=== PATIENT | female | born 1985 | race Caucasian/White ===

== ENCOUNTER 2021-04-12 14:45 | Inpatient (IN) | payer BC ==
[2021-04-12] MEDS ORDERED: Ondansetron 4 MG/2 ML SDV IVPUSH PRN (16:52)
[2021-04-12] MEDS ORDERED: Nalbuphine 10 MG/1 ML Vial IVPUSH PRN (16:52)
[2021-04-12] MEDS ORDERED: Acetaminophen 325 MG Tab PO PRN (16:52)
--- NOTE | 2021-04-12 16:55 | PCM.LDHP ---
L&D History of Present Illness - General Date of Service: 04/12/21 Admit Problem/Dx: Patient Status Order with Admit Dx/Problem 04/12/21 14:58 Patient Status [ADT] Routine Admission Diagnosis/Problem Admission Diagnosis/Problem Source of Information: Patient History Limitations: Reports: No Limitations - History of Present Illness Introduction:: Patient is a 35 y/o at 37 5/7 wks who presents for concerns of contractions. Started in early AM hours. Progressing slightly. No LOF - Related Data Allergies/Adverse Reactions: Allergies Allergy/AdvReac Type Severity Reaction Status Date / Time cephalexin Allergy Hives Verified 04/12/21 15:54 doxycycline Allergy Hives Verified 04/12/21 15:55 levofloxacin Allergy Hives Verified 04/12/21 15:55 Penicillins Allergy Hives Verified 04/12/21 15:52 shellfish derived Allergy Shortness Verified 04/12/21 15:55 of Breath Home Medications: Home Meds Aspirin [Ecotrin EC] 81 mg PO DAILY 04/12/21 [History] Cholecalciferol (Vitamin D3) [Vitamin D3] 25 mcg PO DAILY 04/12/21 [History] Ferrous Sulfate 325 mg PO DAILY 04/12/21 [History] Loratadine [Claritin] 10 mg PO DAILY 04/12/21 [History] Omeprazole Magnesium [Prilosec Otc] 20 mg PO BID 04/12/21 [History] Pnv No.95/Ferrous Fum/Folic AC [ Caplet] 1 each PO DAILY 04/12/21 [History] 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 Medical History 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 Para: 1 (Daughter passed SIDS) Psychiatric History: Reports: Anxiety - Past Surgical History HEENT Surgical History: Reports: Oral Surgery (wisdom tooth extraction) Social & Family History - Tobacco Use Tobacco Use Status *Q: Never Tobacco User - Alcohol Use Alcohol Use History: No - Recreational Drug Use Recreational Drug Use: No H&P Review of Systems - Review of Systems: Review Of Systems: See Below General: Reports: No Symptoms Pulmonary: Reports: No Symptoms Cardiovascular: Reports: No Symptoms Gastrointestinal: Reports: No Symptoms Genitourinary: Reports: No Symptoms Musculoskeletal: Reports: No Symptoms Psychiatric: Reports: No Symptoms L&D Exam - Exam Exam: See Below - Vital Signs Vital Signs: Last Vital Signs Temp 36.9 C 04/12/21 14:58 Pulse 79 04/12/21 14:58 Resp 14 04/12/21 14:58 BP 146/80 H 04/12/21 14:58 Pulse Ox 97 04/12/21 14:58 Weight: 115.212 kg - OB Specific Contraction Intensity: Mild to Moderate Movement: Active Heart Tones: Present Heart Tones per Min: 145 Heart Rate (FHR) Variability: Moderate (6-25 bpm) Presentation: Vertex - Moreno Score Moreno Score Cervix Position: Anterior Moreno Score Consistency: Soft Moreno Score Effacement: 51-70% Moreno Score Dilation: 3-4 cm Moreno Score Infant's Station: -2 Moreno Score Total: 9 - Exam General: Alert, Oriented, Cooperative Lungs: Clear to Auscultation, Normal Respiratory Effort Cardiovascular: Regular Rate, Regular Rhythm GI/Abdominal Exam: Soft, Non-Tender Genitourinary: Normal external exam Extremities: Pedal Edema - Patient Data Lab Results Last 24 hrs: Laboratory Results - last 24 hr 04/12/21 Range/Units 16:10 WBC 13.32 H (3.98-10.04) K/mm3 RBC 4.20 (3.98-5.22) M/mm3 Hgb 12.0 (11.2-15.7) gm/dl Hct 36.9 (34.1-44.9) % MCV 87.9 (79.4-94.8) fl MCH 28.6 (25.6-32.2) pg MCHC 32.5 (32.2-35.5) g/dl RDW Std Deviation 56.4 H (36.4-46.3) fL Plt Count 257 (182-369) K/mm3 MPV 10.5 (9.4-12.3) fl Neut % (Auto) 81.4 H (34.0-71.1) % Lymph % (Auto) 12.7 L (19.3-51.7) % [place] % (Auto) 5.0 (4.7-12.5) % Eos % (Auto) 0.2 L (0.7-5.8) Baso % (Auto) 0.1 (0.1-1.2) % Neut # (Auto) 10.84 H (1.56-6.13) K/mm3 Lymph # (Auto) 1.69 (1.18-3.74) K/mm3 [place] # (Auto) 0.67 H (0.24-0.36) K/mm3 Eos # (Auto) 0.03 L (0.04-0.36) K/mm3 Baso # (Auto) 0.01 (0.01-0.08) K/mm3 Result Diagrams: 04/12/21 16:10 04/12/21 16:10 - Problem List (1) 37 weeks gestation of SNOMED Code(s): 48680531 ICD Code: Z3A.37 - 37 WEEKS GESTATION OF Status: Acute Current Visit: Yes (2) Gestational hypertension SNOMED Code(s): 51021113 ICD Code: O13.9 - GESTATIONAL HTN W/O SIGNIFICANT PROTEINURIA, UNSP TRIMESTER Status: Acute Current Visit: Yes Qualifiers: Trimester: third trimester Qualified Code(s): O13.3 - Gestational [-induced] hypertension without significant proteinuria, third trimester Problem List Initiated/Reviewed/Updated: Yes Orders Last 24hrs: Active Orders 24 hr Category Date Time Status Patient Status [ADT] Routine ADT 04/12/21 14:58 Active Communication Order [RC] ASDIRECTED Care 04/12/21 16:53 Ordered Heart Tones [RC] ASDIRECTED Care 04/12/21 16:53 Ordered Non Stress Test [RC] PER UNIT ROUTINE Care 04/12/21 14:58 Active Notify Provider [RC] PRN Care 04/12/21 16:53 Ordered Peripheral IV Care [RC] . DIRECTED Care 04/12/21 16:53 Ordered Up ad Susana [RC] ASDIRECTED Care 04/12/21 14:59 Active Vital Signs [RC] PER UNIT ROUTINE Care 04/12/21 14:58 Active Regular Diet [DIET] Diet 04/12/21 Breakfast Active Regular Diet [DIET] Diet 04/12/21 Dinner Ordered ALANINE AMINOTRANSFERASE,ALT [CHEM] Stat Lab 04/12/21 16:10 Received ASPARTATE AMNIOTRANSFERASE,AST [CHEM] Stat Lab 04/12/21 16:10 Received BLOOD UREA NITROGEN,BUN [CHEM] Stat Lab 04/12/21 16:10 Received CREATININE W/GFR [CHEM] Stat Lab 04/12/21 16:10 Received LACTATE DEHYDROGENASE,LDH [CHEM] Stat Lab 04/12/21 16:10 Received PROTEIN/CREATININE RATIO,URINE [URCHEM] Routine Lab 04/12/21 15:56 Received RAPID PLASMA REAGIN,RPR [CHEM] Routine Lab 04/12/21 16:53 Ordered TYPE AND SCREEN [BBK] Routine Lab 04/12/21 16:52 Ordered URIC ACID [CHEM] Stat Lab 04/12/21 16:10 Received Acetaminophen [TylenoL] Med 04/12/21 16:52 Ordered 650 mg PO Q4H PRN Lactated Ringers [Ringers, Lactated] 1,000 ml Med 04/12/21 17:00 Ordered IV ASDIRECTED Nalbuphine [Nubain] Med 04/12/21 16:52 Ordered 10 mg IVPUSH Q2H PRN Ondansetron [Zofran] Med 04/12/21 16:52 Ordered 4 mg IVPUSH Q4H PRN Oxytocin/Lactated Ringers [Pitocin in LR 10 Units/1,000 Med 04/12/21 17:00 Ordered ML] 10 unit in 1,000 ml IV .CONTINUOUS Oxytocin/Lactated Ringers [Pitocin in LR 10 Units/1,000 Med 04/12/21 17:00 Ordered ML] 10 unit in 1,000 ml IV TITRATE Sodium Chloride 0.9% [Saline Flush] Med 04/12/21 21:00 Ordered 10 ml FLUSH 0900,2100 Electronic Heart Tones Ext w TOCO [WOMSER] Oth 04/12/21 16:53 Ordered Routine Electronic Heart Tones Internal [WOMSER] Per Unit Oth 04/12/21 16:53 Ordered Routine PIH Panel [OM.PC] Stat Oth 04/12/21 15:56 Ordered Peripheral IV Insertion Adult [OM.PC] Routine Oth 04/12/21 16:53 Ordered Resuscitation Status Routine Resus Stat 04/12/21 14:58 Ordered Medication Orders Acetaminophen (Acetaminophen 325 Mg Tab) 650 mg PO Q4H PRN PRN Reason: Pain (Mild 1-3) and fever Lactated Ringer's (Ringers, Lactated) 1,000 mls @ 100 mls/hr IV ASDIRECTED JORGE Oxytocin/Lactated Ringer's (Pitocin In Lr 10 Units/1,000 Ml) 10 unit in 1,000 mls @ 500 mls/hr IV .CONTINUOUS JORGE Nalbuphine HCl (Nalbuphine 10 Mg/1 Ml Vial) 10 mg IVPUSH Q2H PRN PRN Reason: Pain Ondansetron HCl (Ondansetron 4 Mg/2 Ml Sdv) 4 mg IVPUSH Q4H PRN PRN Reason: Nausea/Vomiting Sodium Chloride (Sodium Chloride 0.9% 10 Ml Syringe) 10 ml FLUSH 0900,2100 [facility] Assessment/Plan Comment:: Patient presented for concerns of labor. No active labor, however, with mild range BP's. Labs consistent with gestational HTN. Will admit for IOL. GBS negative Pitocin started - at 4. AROM done with release of clear fluid Pain management per patient preference Anticipate
[2021-04-12] MEDS ORDERED: Oxytocin/Lactated Ringers 10 UNIT/1,000 ML BAG IV SCH ×2 (17:00)
[2021-04-12] MEDS: Lactated Ringers 1,000 ML IV SCH ×3 (17:16→20:58)
--- NOTE | 2021-04-12 19:14 | PCM.PREANE ---
Preanesthetic Assessment - Procedure Proposed Procedure: kaylen - Anesthesia/Transfusion/Family Hx Anesthesia History: Prior Anesthesia Without Reaction Family History of Anesthesia Reaction: No Transfusion History: No Prior Transfusion(s) - Review of Systems General: No Symptoms Pulmonary: No Symptoms Cardiovascular: No Symptoms, Other (PIH today) Gastrointestinal: No Symptoms Neurological: No Symptoms Other: Reports: None - Physical Assessment Vital Signs: Last Vital Signs Temp 98.4 F 04/12/21 14:58 Pulse 79 04/12/21 14:58 Resp 14 04/12/21 14:58 BP 146/80 H 04/12/21 14:58 Pulse Ox 97 04/12/21 14:58 Height: 5 ft 10 in Weight: 115.212 kg ASA Class: 2 Mental Status: Alert & Oriented x3 Airway Class: Mallampati = 1 Dentition: Reports: Normal Dentition Thyro-Mental Finger Breadths: 3 Mouth Opening Finger Breadths: 3 ROM/Head Extension: Full Lungs: Clear to Auscultation, Normal Respiratory Effort Cardiovascular: Regular Rate, Regular Rhythm - Lab Values: Laboratory Last Values WBC 13.32 K/mm3 (3.98-10.04) H 04/12/21 16:10 RBC 4.20 M/mm3 (3.98-5.22) 04/12/21 16:10 Hgb 12.0 gm/dl (11.2-15.7) 04/12/21 16:10 Hct 36.9 % (34.1-44.9) 04/12/21 16:10 MCV 87.9 fl (79.4-94.8) 04/12/21 16:10 MCH 28.6 pg (25.6-32.2) 04/12/21 16:10 MCHC 32.5 g/dl (32.2-35.5) 04/12/21 16:10 RDW Std Deviation 56.4 fL (36.4-46.3) H 04/12/21 16:10 Plt Count 257 K/mm3 (182-369) 04/12/21 16:10 MPV 10.5 fl (9.4-12.3) 04/12/21 16:10 Neut % (Auto) 81.4 % (34.0-71.1) H 04/12/21 16:10 Lymph % (Auto) 12.7 % (19.3-51.7) L 04/12/21 16:10 [place] % (Auto) 5.0 % (4.7-12.5) 04/12/21 16:10 Eos % (Auto) 0.2 (0.7-5.8) L 04/12/21 16:10 Baso % (Auto) 0.1 % (0.1-1.2) 04/12/21 16:10 Neut # (Auto) 10.84 K/mm3 (1.56-6.13) H 04/12/21 16:10 Lymph # (Auto) 1.69 K/mm3 (1.18-3.74) 04/12/21 16:10 [place] # (Auto) 0.67 K/mm3 (0.24-0.36) H 04/12/21 16:10 Eos # (Auto) 0.03 K/mm3 (0.04-0.36) L 04/12/21 16:10 Baso # (Auto) 0.01 K/mm3 (0.01-0.08) 04/12/21 16:10 BUN 6 mg/dL (7-18) L 04/12/21 16:10 Creatinine 0.8 mg/dL (0.55-1.02) 04/12/21 16:10 Est Cr Clr Drug Dosing 104.12 mL/min 04/12/21 16:10 Estimated GFR (MDRD) > 60 mL/min (>60) 04/12/21 16:10 Uric Acid 4.9 mg/dL (2.6-6.0) 04/12/21 16:10 AST 8 U/L (15-37) L 04/12/21 16:10 ALT 13 U/L (14-59) L 04/12/21 16:10 Lactate Dehydrogenase 150 U/L (81-234) 04/12/21 16:10 Ur Random Creatinine 68.8 mg/dL (30.0-125.0) 04/12/21 15:56 U Random Total Protein 12.4 mg/dL (0.0-11.8) H 04/12/21 15:56 Protein/Creatinin Ratio 180.2 mg/g (0-149) H 04/12/21 15:56 SARS-CoV-2 RNA (ROMINA) Negative (NEGATIVE) 04/12/21 17:36 - Allergies Allergies/Adverse Reactions: Allergies Allergy/AdvReac Type Severity Reaction Status Date / Time cephalexin Allergy Hives Verified 04/12/21 15:54 doxycycline Allergy Hives Verified 04/12/21 15:55 levofloxacin Allergy Hives Verified 04/12/21 15:55 Penicillins Allergy Hives Verified 04/12/21 15:52 shellfish derived Allergy Shortness Verified 04/12/21 15:55 of Breath - Acknowledgements Anesthesia Type Planned: Epidural Pt an Appropriate Candidate for the Planned Anesthesia: Yes Alternatives and Risks of Anesthesia Discussed w Pt/Guardian: Yes Pt/Guardian Understands and Agrees with Anesthesia Plan: Yes PreAnesthesia Questionnaire - Past Health History Medical/Surgical History: Denies Medical/Surgical History HEENT History: Reports: Allergic Rhinitis Cardiovascular History: Reports: None, Other (See Below) (PI) Respiratory History: Reports: None Gastrointestinal History: Reports: GERD 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 Psychiatric History: Reports: Anxiety, PTSD Other Psychiatric History: has met with counselor josearding PTSD after loss of fisrt Endocrine/Metabolic History: Reports: Obesity/BMI 30+ Oncologic (Cancer) History: Reports: None - Infectious Disease History Infectious Disease History: Reports: None - Past Surgical History HEENT Surgical History: Reports: Oral Surgery Cardiovascular Surgical History: Reports: None Respiratory Surgical History: Reports: None - SUBSTANCE USE Tobacco Use Status *Q: Never Tobacco User Tobacco Use Within Last Twelve Months: No Second Hand Smoke Exposure: No Days Per Week of Alcohol Use: 0 Recreational Drug Use History: No - HOME MEDS Home Medications: Home Meds Aspirin [Ecotrin EC] 81 mg PO DAILY 04/12/21 [History] Cholecalciferol (Vitamin D3) [Vitamin D3] 25 mcg PO DAILY 04/12/21 [History] Ferrous Sulfate 325 mg PO DAILY 04/12/21 [History] Loratadine [Claritin] 10 mg PO DAILY 04/12/21 [History] Omeprazole Magnesium [Prilosec Otc] 20 mg PO BID 04/12/21 [History] Pnv No.95/Ferrous Fum/Folic AC [ Caplet] 1 each PO DAILY 04/12/21 [History] - CURRENT (IN HOUSE) MEDS Current Meds: Current Medications Acetaminophen (Acetaminophen 325 Mg Tab) 650 mg PO Q4H PRN PRN Reason: Pain (Mild 1-3) and fever Lactated Ringer's (Ringers, Lactated) 1,000 mls @ 100 mls/hr IV ASDIRECTED [facility] Last Admin: 04/12/21 17:16 Dose: 100 mls/hr Documented by: Oxytocin/Lactated Ringer's (Pitocin In Lr 10 Units/1,000 Ml) 10 unit in 1,000 mls @ 500 mls/hr IV .CONTINUOUS JORGE Oxytocin/Lactated Ringer's (Pitocin In Lr 10 Units/1,000 Ml) 10 unit in 1,000 mls @ 12 mls/hr IV TITRATE JORGE; Protocol Last Titration: 04/12/21 18:15 Dose: 4 munits/min, 24 mls/hr Documented by: Nalbuphine HCl (Nalbuphine 10 Mg/1 Ml Vial) 10 mg IVPUSH Q2H PRN PRN Reason: Pain Ondansetron HCl (Ondansetron 4 Mg/2 Ml Sdv) 4 mg IVPUSH Q4H PRN PRN Reason: Nausea/Vomiting Sodium Chloride (Sodium Chloride 0.9% 10 Ml Syringe) 10 ml FLUSH 0900,2100 [facility]
[2021-04-12] MEDS ORDERED: ePHEDrine 50 MG/ML SDV IVPUSH PRN (19:15)
[2021-04-12] MEDS ORDERED: Bupivacaine/fentaNYL/NS 100 ML Bag EPIDUR PRN (19:15)
[2021-04-12] MEDS ORDERED: diphenhydrAMINE 50 MG/ML SDV IVPUSH PRN (19:15)
[2021-04-12] MEDS ORDERED: fentaNYL 100 MCG/2 ML SDV EPIDUR PRN (19:15)
[2021-04-12] MEDS ORDERED: fentaNYL 100 MCG/2 ML SDV ONE (19:19)
[2021-04-12] MEDS ORDERED: Sodium Chloride 0.9% 10 ML Syringe FLUSH SCH (21:00)
[2021-04-12] MEDS ORDERED: Promethazine 25 MG/ML SDV IM ONE (23:59)
[2021-04-13] MEDS ORDERED: Bupivacaine 0.25% 10 ML SDV ONE
--- NOTE | 2021-04-13 01:22 | PCM.DEL ---
L & D Note - General Info Date of Service: 04/13/21 - Delivery Note Labor: Induced by ARM, Induced by Oxytocin Delivery Outcome: Livebirth Infant Delivery Method: Spontaneous Vaginal Delivery-Single Infant Delivery Mode: Spontaneous Presentation: Left Occiput Anterior (CHRISTIAN) Nuchal Cord: Present Anesthesia Type: Epidural Amniotic Fluid Description: Clear Episiotomy Type: None Laceration: 2nd Degree Suture type: Vicryl Suture size: 2-0 Placenta: Intact, Spontaneous Cord: 3 Vessels Estimated Blood Loss: 400 Resuscitation Needed: Yes [place]: Suctioned, Bulb Syringe, Stimulated, Warmed, [place] Used, Warmer Used Delivery Comments (Free Text/Narrative):: The patient was pushing in the dorsal lithotomy position. Sterile vaginal exam complete/complete/+4. head in CHRISTIAN presentation. Maternal pushing effort was good and the pelvis was felt to be adequate for an instrument assisted delivery. Given persistent bradycardia into the 70's the decision was made to proceed with vacuum assisted vaginal delivery. The mushroom cup was placed without difficulty at 0104. Subsequent vacuum assisted vaginal delivery with pushing over 1 contraction at 0105. Total pressure applied 550 mm Hg. Total pop offs: 0. Suction was removed following delivery of the head. Nuchal cord present, but tight, not reduced. The remainder of the delivered without difficulty. placed on maternal abdomen. The umbilical cord was clamped and cut and the infant was taken to warmer for evaluation. Cord segment obtained for cord gas. Placenta allowed time to separate and expelled intact. Inspection of the perineum following delivery with 2nd degree perineal laceration repaired in the typical fashion. - General Info Date of Service: 04/13/21 - Patient Data Vitals - Most Recent: Last Vital Signs Temp 36.9 C 04/12/21 14:58 Pulse 79 04/12/21 14:58 Resp 14 04/12/21 14:58 BP 146/80 H 04/12/21 14:58 Pulse Ox 97 04/12/21 14:58 Weight - Most Recent: 115.212 kg I&O - Last 24 Hours: Intake & Output 04/12/21 04/12/21 04/13/21 14:59 22:59 06:59 Intake Total 2000 Output Total 600 Balance 2000 -600 - Exam Urinary Catheter Total Time: 0Days 2Hours - Problem List & Annotations (1) 37 weeks gestation of SNOMED Code(s): 66410454 Code(s): Z3A.37 - 37 WEEKS GESTATION OF Status: Acute Current Visit: Yes (2) Gestational hypertension SNOMED Code(s): 12145798 Code(s): O13.9 - GESTATIONAL HTN W/O SIGNIFICANT PROTEINURIA, UNSP TRIMESTER Status: Acute Current Visit: Yes Qualifiers: Trimester: third trimester Qualified Code(s): O13.3 - Gestational [-induced] hypertension without significant proteinuria, third trimester (3) Vacuum-assisted vaginal delivery SNOMED Code(s): 75416309232994544 Code(s): Z37.9 - OUTCOME OF DELIVERY, UNSPECIFIED Status: Acute Current Visit: Yes - Problem List Review Problem List Initiated/Reviewed/Updated: Yes - My Orders Last 24 Hours: My Active Orders 04/12/21 Breakfast Regular Diet [DIET] 04/12/21 14:58 Patient Status [ADT] Routine Resuscitation Status Routine 04/12/21 14:59 Up ad Susana [RC] ASDIRECTED 04/12/21 15:56 PIH Panel [OM.PC] Stat 04/12/21 16:10 RAPID PLASMA REAGIN,RPR [CHEM] Routine 04/12/21 16:52 Acetaminophen [TylenoL] 650 mg PO Q4H PRN Nalbuphine [Nubain] 10 mg IVPUSH Q2H PRN Ondansetron [Zofran] 4 mg IVPUSH Q4H PRN 04/12/21 16:53 Communication Order [RC] ASDIRECTED Notify Provider [RC] PRN Peripheral IV Care [RC] Q4HR Electronic Heart Tones Ext w TOCO [WOMSER] Routine Electronic Heart Tones Internal [WOMSER] Per Unit Routine Peripheral IV Insertion Adult [OM.PC] Routine 04/12/21 Dinner Regular Diet [DIET] Lactated Ringers [Ringers, Lactated] 1,000 ml IV ASDIRECTED Oxytocin/Lactated Ringers [Pitocin in LR 10 Units/1,000 ML] 10 unit in 1,000 ml IV .CONTINUOUS Oxytocin/Lactated Ringers [Pitocin in LR 10 Units/1,000 ML] 10 unit in 1,000 ml IV TITRATE 04/12/21 21:00 Sodium Chloride 0.9% [Saline Flush] 10 ml FLUSH 0900,2100 04/13/21 01:19 Patient Status Manage Transfer [TRANSFER] Routine - Assessment Assessment:: PPD#0 - Plan Plan:: Routine cares Monitor BP's closely Breast feeding Discharge home in 1-2 days
[2021-04-13] MEDS ORDERED: Benzocaine/Menthol 20%-0.5% Spray 78 GM Cannister TOP PRN (01:42)
[2021-04-13] MEDS ORDERED: Docusate Sodium 100 MG Cap PO PRN (01:42)
[2021-04-13] MEDS ORDERED: Witch Hazel Medicated Pads 40/Jar TOP PRN (01:42)
[2021-04-13] MEDS: Acetaminophen 325 MG Tab PO PRN ×2 (10:03→19:40)
[2021-04-13] MEDS: Ibuprofen 600 MG Tab PO PRN (13:30)
--- NOTE | 2021-04-13 14:10 | PCM48HPAN ---
Post Anesthesia Note - EVALUATION WITHIN 48HRS OF ANESTHETIC Vital Signs in Normal Range: Yes Patient Participated in Evaluation: Yes Respiratory Function Stable: Yes Airway Patent: Yes Cardiovascular Function Stable: Yes Hydration Status Stable: Yes Pain Control Satisfactory: Yes Nausea and Vomiting Control Satisfactory: Yes Mental Status Recovered: Yes Vital Signs: Last Vital Signs Temp 99.1 F 04/13/21 09:13 Pulse 75 04/13/21 09:13 Resp 14 04/13/21 09:13 BP 120/73 04/13/21 09:14 Pulse Ox 96 04/13/21 09:13 - COMMENTS/OBSERVATIONS Free Text/Narrative:: Pleased with epidural. No complaints.
[2021-04-14] MEDS: Ibuprofen 600 MG Tab PO PRN (03:33)
--- NOTE | 2021-04-14 06:34 | PCM.DCSUM1 ---
Discharge Summary - Discharge Data Discharge Date: 04/14/21 Discharge Disposition: Home, Self-Care 01 Condition: Good - Referral to Home Health Primary Care Physician: Rina Baptiste MD - Discharge Diagnosis/Problem(s) (1) 37 weeks gestation of SNOMED Code(s): 20083466 ICD Code: Z3A.37 - 37 WEEKS GESTATION OF Status: Acute Current Visit: Yes (2) Gestational hypertension SNOMED Code(s): 21707878 ICD Code: O13.9 - GESTATIONAL HTN W/O SIGNIFICANT PROTEINURIA, UNSP TRIMESTER Status: Acute Current Visit: Yes Qualifiers: Trimester: third trimester Qualified Code(s): O13.3 - Gestational [-induced] hypertension without significant proteinuria, third trimester (3) Vacuum-assisted vaginal delivery SNOMED Code(s): 91819381822655554 ICD Code: Z37.9 - OUTCOME OF DELIVERY, UNSPECIFIED Status: Acute Current Visit: Yes - Patient Summary/Data Complications: None Consults: None Recommended Follow-up Testing/Procedures: Follow up in 1 week for BP check and 3 weeks for check Hospital Course: 35 y/o at 37 5/7 wks who presented in maybe early labor, but also with findings of mildly elevated BP's and lab testing c/w gestational HTN. Was augmented with pitocin and AROM. Progressed well. Underwent VAVD for terminal bradycardia. See delivery note. BP's normal. Was discharged home on PPD#1 - Patient Instructions Diet: Regular Diet as Tolerated Activity: As Tolerated Activity, Other: Pelvic rest for 6 weeks Driving: May Drive Today Showering/Bathing: May Shower Showering/Bathing, Other: May Bathe Notify Provider of: Fever, Increased Pain, Swelling and Redness, Drainage, Nausea and/or Vomiting - Discharge Plan *PRESCRIPTION DRUG MONITORING PROGRAM REVIEWED*: Not Applicable *COPY OF PRESCRIPTION DRUG MONITORING REPORT IN PATIENT FLORIDALMA: Not Applicable Home Medications: Home Meds Cholecalciferol (Vitamin D3) [Vitamin D3] 25 mcg PO DAILY 04/12/21 [History] Loratadine [Claritin] 10 mg PO DAILY 04/12/21 [History] Omeprazole Magnesium [Prilosec Otc] 20 mg PO BID 04/12/21 [History] Pnv No.95/Ferrous Fum/Folic AC [ Caplet] 1 each PO DAILY 04/12/21 [History] Acetaminophen [Tylenol] 650 mg PO Q4H PRN tablet 04/13/21 [Rx] Docusate Sodium [Colace] 100 mg PO BID PRN cap 04/13/21 [Rx] Ibuprofen [Motrin] 600 mg PO Q6H PRN tablet 04/13/21 [Rx] Referrals: Rina Baptiste MD [Primary Care Provider] - (3 weeks for check 1 week for BP check ) - Discharge Summary/Plan Comment DC Time >30 min.: No Total # of Minutes for Discharge Time: 15 - Patient Data Vitals - Most Recent: Last Vital Signs Temp 36.9 C 04/14/21 03:27 Pulse 74 04/14/21 03:27 Resp 12 04/14/21 03:27 BP 121/69 04/14/21 03:27 Pulse Ox 95 04/14/21 03:27 Weight - Most Recent: 115.212 kg I&O - Last 24 hours: Intake & Output 04/13/21 04/13/21 04/14/21 14:59 22:59 06:59 Intake Total 120 Balance 120 Lab Results - Last 24 hrs: Laboratory Results - last 24 hr 04/12/21 Range/Units 16:10 RPR Non-reactive (NONREACTIVE) Med Orders - Current: Current Medications Acetaminophen (Acetaminophen 325 Mg Tab) 650 mg PO Q4H PRN PRN Reason: mild pain or fever Last Admin: 04/13/21 19:40 Dose: 650 mg Documented by: Benzocaine/Menthol (Benzocaine/Menthol 20%-0.5% [place] 78 Gm Cannister) 0 gm TOP ASDIRECTED PRN PRN Reason: Perineal Comfort Measure Last Admin: 04/13/21 03:04 Dose: 1 can Documented by: Docusate Sodium (Docusate Sodium 100 Mg Cap) 100 mg PO BID PRN PRN Reason: Constipation Ibuprofen (Ibuprofen 600 Mg Tab) 600 mg PO Q6H PRN PRN Reason: Mild pain or fever Last Admin: 04/14/21 03:33 Dose: 600 mg Documented by: Louis Ruiz (Louis Ruiz Medicated Pads 40/Jar) 1 pad TOP ASDIRECTED PRN PRN Reason: Perineal Comfort Measure Last Admin: 04/13/21 03:04 Dose: 1 tub Documented by: Discontinued Medications Acetaminophen (Acetaminophen 325 Mg Tab) 650 mg PO Q4H PRN PRN Reason: Pain (Mild 1-3) and fever Diphenhydramine HCl (Diphenhydramine 50 Mg/Ml Sdv) 25 mg IVPUSH Q6H PRN PRN Reason: pruritis Last Admin: 04/12/21 20:00 Dose: 25 mg Documented by: Ephedrine Sulfate (Ephedrine 50 Mg/Ml Sdv) 5 mg IVPUSH ASDIRECTED PRN PRN Reason: Hypotension Fentanyl (Fentanyl 100 Mcg/2 Ml Sdv) 100 mcg EPIDUR Q3H PRN PRN Reason: Pain Last Admin: 04/12/21 19:26 Dose: 100 mcg Documented by: Fentanyl (Fentanyl 100 Mcg/2 Ml Sdv) Confirm Administered Dose 100 mcg .[address] [facility] Stop: 04/12/21 19:20 Last Admin: 04/12/21 19:48 Dose: Not Given Documented by: Fentanyl/Bupivacaine HCl (Bupivacaine/Fentanyl/Ns 100 Ml Bag) 100 ml EPIDUR ASDIRECTED PRN PRN Reason: Pain Last Admin: 04/12/21 19:26 Dose: 100 ml Documented by: Lactated Ringer's (Ringers, Lactated) 1,000 mls @ 100 mls/hr IV ASDIRECTED JORGE Last Admin: 04/12/21 20:58 Dose: 100 mls/hr Documented by: Oxytocin/Lactated Ringer's (Pitocin In Lr 10 Units/1,000 Ml) 10 unit in 1,000 mls @ 500 mls/hr IV .CONTINUOUS JORGE Last Admin: 04/13/21 01:42 Dose: 500 mls/hr Documented by: Oxytocin/Lactated Ringer's (Pitocin In Lr 10 Units/1,000 Ml) 10 unit in 1,000 mls @ 12 mls/hr IV TITRATE JORGE; Protocol Last Titration: 04/13/21 01:06 Dose: 166.5 munits/min, 999 mls/hr Documented by: Nalbuphine HCl (Nalbuphine 10 Mg/1 Ml Vial) 10 mg IVPUSH Q2H PRN PRN Reason: Pain Ondansetron HCl (Ondansetron 4 Mg/2 Ml Sdv) 4 mg IVPUSH Q4H PRN PRN Reason: Nausea/Vomiting Last Admin: 04/12/21 19:59 Dose: 4 mg Documented by: Promethazine HCl (Promethazine 25 Mg/Ml Sd) 12.5 mg IM ONETIME ONE Stop: 04/13/21 00:00 Last Admin: 04/13/21 00:04 Dose: 12.5 mg Documented by: Sodium Chloride (Sodium Chloride 0.9% 10 Ml Syringe) 10 ml FLUSH 0900,2100 JORGE Last Admin: 04/12/21 21:35 Dose: Not Given Documented by:
--- NOTE | 2021-04-14 06:34 | PCM.PNPP ---
- General Info Date of Service: 04/14/21 Functional Status: Reports: Pain Controlled, Tolerating Diet, Ambulating, Urinating - Review of Systems General: Reports: No Symptoms Pulmonary: Reports: No Symptoms Cardiovascular: Reports: No Symptoms Gastrointestinal: Reports: No Symptoms Genitourinary: Reports: No Symptoms Musculoskeletal: Reports: No Symptoms Neurological: Reports: No Symptoms - General Info Date of Service: 04/14/21 - Patient Data Vital Signs - Most Recent: Last Vital Signs Temp 36.9 C 04/14/21 03:27 Pulse 74 04/14/21 03:27 Resp 12 04/14/21 03:27 BP 121/69 04/14/21 03:27 Pulse Ox 95 04/14/21 03:27 Weight - Most Recent: 115.212 kg I&O - Last 24 Hours: Intake & Output 04/13/21 04/13/21 04/14/21 14:59 22:59 06:59 Intake Total 120 Balance 120 Lab Results - Last 24 Hours: Laboratory Results - last 24 hr 04/12/21 Range/Units 16:10 RPR Non-reactive (NONREACTIVE) Med Orders - Current: Current Medications Acetaminophen (Acetaminophen 325 Mg Tab) 650 mg PO Q4H PRN PRN Reason: mild pain or fever Last Admin: 04/13/21 19:40 Dose: 650 mg Documented by: Benzocaine/Menthol (Benzocaine/Menthol 20%-0.5% [place] 78 Gm Cannister) 0 gm TOP ASDIRECTED PRN PRN Reason: Perineal Comfort Measure Last Admin: 04/13/21 03:04 Dose: 1 can Documented by: Docusate Sodium (Docusate Sodium 100 Mg Cap) 100 mg PO BID PRN PRN Reason: Constipation Ibuprofen (Ibuprofen 600 Mg Tab) 600 mg PO Q6H PRN PRN Reason: Mild pain or fever Last Admin: 04/14/21 03:33 Dose: 600 mg Documented by: Louis Ruiz (Louis Ruiz Medicated Pads 40/Jar) 1 pad TOP ASDIRECTED PRN PRN Reason: Perineal Comfort Measure Last Admin: 04/13/21 03:04 Dose: 1 tub Documented by: Discontinued Medications Acetaminophen (Acetaminophen 325 Mg Tab) 650 mg PO Q4H PRN PRN Reason: Pain (Mild 1-3) and fever Diphenhydramine HCl (Diphenhydramine 50 Mg/Ml Sdv) 25 mg IVPUSH Q6H PRN PRN Reason: pruritis Last Admin: 04/12/21 20:00 Dose: 25 mg Documented by: Ephedrine Sulfate (Ephedrine 50 Mg/Ml Sdv) 5 mg IVPUSH ASDIRECTED PRN PRN Reason: Hypotension Fentanyl (Fentanyl 100 Mcg/2 Ml Sdv) 100 mcg EPIDUR Q3H PRN PRN Reason: Pain Last Admin: 04/12/21 19:26 Dose: 100 mcg Documented by: Fentanyl (Fentanyl 100 Mcg/2 Ml Sdv) Confirm Administered Dose 100 mcg .ROUTE .STK-MED ONE Stop: 04/12/21 19:20 Last Admin: 04/12/21 19:48 Dose: Not Given Documented by: Fentanyl/Bupivacaine HCl (Bupivacaine/Fentanyl/Ns 100 Ml Bag) 100 ml EPIDUR ASDIRECTED PRN PRN Reason: Pain Last Admin: 04/12/21 19:26 Dose: 100 ml Documented by: Lactated Ringer's (Ringers, Lactated) 1,000 mls @ 100 mls/hr IV ASDIRECTED JORGE Last Admin: 04/12/21 20:58 Dose: 100 mls/hr Documented by: Oxytocin/Lactated Ringer's (Pitocin In Lr 10 Units/1,000 Ml) 10 unit in 1,000 mls @ 500 mls/hr IV .CONTINUOUS JORGE Last Admin: 04/13/21 01:42 Dose: 500 mls/hr Documented by: Oxytocin/Lactated Ringer's (Pitocin In Lr 10 Units/1,000 Ml) 10 unit in 1,000 mls @ 12 mls/hr IV TITRATE JORGE; Protocol Last Titration: 04/13/21 01:06 Dose: 166.5 munits/min, 999 mls/hr Documented by: Nalbuphine HCl (Nalbuphine 10 Mg/1 Ml Vial) 10 mg IVPUSH Q2H PRN PRN Reason: Pain Ondansetron HCl (Ondansetron 4 Mg/2 Ml Sdv) 4 mg IVPUSH Q4H PRN PRN Reason: Nausea/Vomiting Last Admin: 04/12/21 19:59 Dose: 4 mg Documented by: Promethazine HCl (Promethazine 25 Mg/Ml Sdv) 12.5 mg IM ONETIME ONE Stop: 04/13/21 00:00 Last Admin: 04/13/21 00:04 Dose: 12.5 mg Documented by: Sodium Chloride (Sodium Chloride 0.9% 10 Ml Syringe) 10 ml FLUSH 0900,2100 JORGE Last Admin: 04/12/21 21:35 Dose: Not Given Documented by: - Infant Interaction Infant Disposition, : [place] in Room with Family Interaction: Holding Feeding: Attempted ; Nursed Fair/Poor, Bottle Fed Infant Support Person: - Recovery Exam Fundal Tone: Firm Fundal Level: 2 Fingerbreadths Below Umbilicus Fundal Placement: Midline Lochia Amount: Scant, Small Lochia Color: Rubra/Red Perineum Description: Edematous, Other (see below) Other Perinuem Description: Second degree laceration with repair Episiotomy/Laceration: Approximated Bladder Status: Voiding Urinary Elimination: Voided - Exam General: Alert, Oriented, Cooperative GI/Abdominal Exam: Soft, Non-Tender - Problem List & Annotations (1) 37 weeks gestation of SNOMED Code(s): 53426979 Code(s): Z3A.37 - 37 WEEKS GESTATION OF Status: Acute Current Visit: Yes (2) Gestational hypertension SNOMED Code(s): 26174737 Code(s): O13.9 - GESTATIONAL HTN W/O SIGNIFICANT PROTEINURIA, UNSP TRIMESTER Status: Acute Current Visit: Yes Qualifiers: Trimester: third trimester Qualified Code(s): O13.3 - Gestational [-induced] hypertension without significant proteinuria, third trimester (3) Vacuum-assisted vaginal delivery SNOMED Code(s): 12451894583082670 Code(s): Z37.9 - OUTCOME OF DELIVERY, UNSPECIFIED Status: Acute Current Visit: Yes - Problem List Review Problem List Initiated/Reviewed/Updated: Yes - My Orders Last 24 Hours: My Active Orders 04/13/21 Breakfast Regular Diet [DIET] 04/14/21 01:42 Heat Therapy [OM.PC] PRN 04/14/21 06:33 Ready for Discharge [RC] PER UNIT ROUTINE - Assessment Assessment:: PPD#1 - Plan Plan:: Routine cares Monitor BP's closely- have been normal. Will need BP check in 1 weeks Breast feeding Discharge home today
== END 2021-04-14 12:00 | disposition home or self-care (01) | DRG 560 ==
LOC: JD.OBCHECK 14:45 → JD.OB 14:48 → JD.OBCHECK 19:20 → JD.OB 19:21 → OBSVTOIN 04-13 01:05 → JD.OB 04-13 01:06 → JD.MS 04-13 12:58 → JD.OB 04-13 13:21
PROVIDERS: ADMIT Obstetrics & Gynecology; ATTEND Obstetrics & Gynecology
PROC: 10D07Z6 Extraction of Products of Conception, Vacuum, Via Natural or Artificial Opening (ICD-10-PCS; principal; 2021-04-13)
PROC: 10907ZC Drainage of Amniotic Fluid, Therapeutic from Products of Conception, Via Natural or Artificial Opening (ICD-10-PCS; 2021-04-13)
PROC: 3E033VJ Introduction of Other Hormone into Peripheral Vein, Percutaneous Approach (ICD-10-PCS; 2021-04-13)
PROC: 3E0R3BZ Introduction of Anesthetic Agent into Spinal Canal, Percutaneous Approach (ICD-10-PCS; 2021-04-13)
PROC: 0KQM0ZZ Repair Perineum Muscle, Open Approach (ICD-10-PCS; 2021-04-13)
DX: O13.4 Gestational [pregnancy-induced] hypertension without significant proteinuria, complicating childbirth (principal); Z3A.37 37 weeks gestation of pregnancy; Z37.0 Single live birth; O70.1 Second degree perineal laceration during delivery; O69.81X0 Labor and delivery complicated by cord around neck, without compression, not applicable or unspecified; Z20.822 Contact with and (suspected) exposure to COVID-19
CPT/HCPCS: 01967; 36415; 51702; 59025; 59409; 82565; 82570; 83615; 84156; 84450; 84460; 84520; 84550; 85025; 86592; 86850; 86900; 86901; A9270-GY; J1200; J2405; J2550; J2590; J3010; J3490; J7120; U0002